=== PATIENT | female | born 1980 | race Two or more races ===

== ENCOUNTER 2019-12-04 13:01 | Emergency (ER) | payer OTHER ==
[~2019-12-04] VITALS: Ht 149.9 cm; Wt 71.2 kg
== END 2019-12-04 17:49 | disposition home or self-care (01) ==
LOC: ER 13:01
DX: D25.1 Intramural leiomyoma of uterus (principal); R10.2 Pelvic and perineal pain; M54.5 Low back pain; Z03.818 Encounter for observation for suspected exposure to other biological agents ruled out

== ENCOUNTER 2019-12-12 07:18 | Outpatient (CLI) | payer OTHER | END 2019-12-12 07:27 | disposition home or self-care (01) | LOC: LAB 07:18 | DX: D64.89 Other specified anemias (principal); Z12.11 Encounter for screening for malignant neoplasm of colon; E03.8 Other specified hypothyroidism; N95.1 Menopausal and female climacteric states; I10 Essential (primary) hypertension; C51.9 Malignant neoplasm of vulva, unspecified; N30.00 Acute cystitis without hematuria; A64 Unspecified sexually transmitted disease; R97.8 Other abnormal tumor markers; R79.89 Other specified abnormal findings of blood chemistry; E55.9 Vitamin D deficiency, unspecified ==

== ENCOUNTER 2019-12-12 08:05 | Outpatient (CLI) | payer OTHER | END 2019-12-12 08:12 | disposition home or self-care (01) | LOC: MRI 08:05 | PROVIDERS: ATTEND Obstetrics & Gynecology | DX: D25.9 Leiomyoma of uterus, unspecified (principal) | CPT/HCPCS: 72197 ==